=== PATIENT | male | born 1955 | race Caucasian/White ===

== ENCOUNTER 2020-12-08 11:19 | Emergency (ER) | payer BC, MEDICARE ==
--- NOTE | 2020-12-08 12:03 | EDM.PDOC ---
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 Patient states a baseball was thrown at him and went through a fence and struck him directly in the right tib-fib. Patient is a type II diabetic controlled with insulin for greater than 20 years. He is immunocompromised due to right kidney transplant for 8 years. He states he did develop a blood blister at the site of impact which he did not poke or drain. Subsequently the blister broke and now has become secondarily infected. He does not feel ill systemically with fever chills nausea vomiting. Throbbing pain right tibia. He states overall the pain is not too bad due to his peripheral neuropathy in both lower extremities. He can smell that the wound is infected. Onset: Sudden Onset Date: 11/16/20 Duration: Week(s):, Constant, Getting Worse Location: Reports: Lower Extremity, Right (Right anterior tibia.) Quality: Reports: Ache Severity: Moderate (Mild ache.) Improves with: Reports: None Worsens with: Reports: None Context: Reports: Trauma (Initial injury secondary to trauma when he was struck with a baseball or hard ball accidentally in the anterior aspect of his tibia.). Denies: Activity, Exercise, Lifting, Sick Contact Associated Symptoms: Reports: No Other Symptoms Treatments VACCINE MANAGER: Reports: Other (see below) (Only his usual medications.) - Related Data Allergies Allergy/AdvReac Type Severity Reaction Status Date / Time No Known Allergies Allergy Verified 08/01/13 00:22 SHIFT NURSE MANAGER Home Meds: Home Meds Fenofibrate [Fenoglide] 40 mg PO DAILY 08/01/13 [History] Simvastatin 10 mg PO BEDTIME 08/01/13 [History] Tacrolimus [Prograf] 0.5 mg PO DAILY 08/01/13 [History] amLODIPine Besylate [Amlodipine Besylate] 2.5 mg PO DAILY 08/01/13 [History] carvediloL [Carvedilol] 6.25 mg PO BID 08/01/13 [History] cloNIDine [Catapres] 0.3 mg PO DAILY 08/01/13 [History] predniSONE [Prednisone] 5 mg PO DAILY 08/01/13 [History] Aspirin [Aspirin EC] 81 mg PO DAILY 12/08/20 [History] Calcium Carbonate [Calcium] 600 mg PO DAILY 12/08/20 [History] Cholecalciferol (Vitamin D3) [Vitamin D3] 1,000 unit PO DAILY 12/08/20 [History] Cobestasol 1 tab PO ASDIRECTED 12/08/20 [History] Doxycycline [Vibra-Tabs] 100 mg PO Q12HR #42 tab 12/08/20 [Rx] Fenofibrate Nanocrystallized [Tricor] 145 mg PO DAILY 12/08/20 [History] Folic Acid 1 mg PO DAILY 12/08/20 [History] Folic Acid/Multivit-Min/Lutein [Centrum Silver Chewable Tablet] 1 tab PO DAILY 12/08/20 [History] Insulin Glargine,Hum.Rec.Anlog [Touchucko Solostar] 0 unit INJECT ASDIRECTED 12/08/20 [History] Iron Polysaccharides Complex [Ferrex 150] 150 mg PO DAILY 12/08/20 [History] Losartan [Cozaar] 50 mg PO DAILY 12/08/20 [History] Magnesium 500 mg PO DAILY 12/08/20 [History] Novalog 70/30 16 - 18 unit INJECT DAILY 12/08/20 [History] hydroCHLOROthiazide [Hydrochlorothiazide] 12.5 mg PO DAILY 12/08/20 [History] metFORMIN [Glucophage] 500 mg PO BID 12/08/20 [History] mycophenolate mofetiL [Cellcept] 1,000 mg PO DAILY 12/08/20 [History] Past Medical History Cardiovascular History: Reports: Hypertension Genitourinary History: Reports: Diabetic Nephropathy (Of original kidney.), Other (See Below) (Suffered renal failure and was a transient dialysis patient. He did receive a kidney transplant right lower quadrant of the abdomen 8 years ago. He is thus immunocompromise due to use of tacrolimus and CellCept.) Musculoskeletal History: Reports: Osteoarthritis (Knees hips lower back at times.) Neurological History: Reports: Neuropathy, Peripheral (Peripheral neuropathy both lower extremities.) Endocrine/Metabolic History: Reports: Diabetes, Type II (Type II diabetic for greater than 20 years. He has been on insulin most of that time.), Obesity/BMI 30+ Social & Family History - Living Situation & Occupation Living situation: Reports: Single Occupation: Employed ED ROS GENERAL - Review of Systems Review Of Systems: See Below Constitutional: Reports: Fatigue. Denies: Fever, Chills, Malaise, Weakness, Decreased Appetite, Weight Loss HEENT: Reports: No Symptoms, Glasses Respiratory: Reports: No Symptoms (Ice is only for reading.) Cardiovascular: Reports: Blood Pressure Problem, Dyspnea on Exertion, Edema (Chronic dependent edema.). Denies: Claudication, Lightheadedness, Orthopnea Endocrine: Reports: Fatigue (On occasion.) GI/Abdominal: Reports: Constipation (Rare problems with constipation) : Reports: Frequency, Other (Nocturia x2) Musculoskeletal: Reports: Neck Pain, Shoulder Pain, Back Pain, Joint Pain (Knees and hips at times.) Skin: Reports: Bruising (Bruises easily. Appreciates that wounds take a long time to heal) Neurological: Reports: Paresthesia (Peripheral neuropathy in both lower extremities both lower extremities), Other. Denies: Trouble Speaking, Difficulty Walking, Weakness, Change in Speech, Gait Disturbance Psychiatric: Reports: No Symptoms Hematologic/Lymphatic: Reports: No Symptoms Immunologic: Reports: No Symptoms ED EXAM, SKIN/RASH Exam: See Below Exam Limited By: No Limitations General Appearance: Alert, WD/WN, No Apparent Distress, Other (Temperature is 37.1 degrees. Heart rate 65 and sinus. Respiratory is 20 with O2 sats of 99% room air BP elevated at 191/78. Blood pressure did come down to 177/89. Of note he is on 4 different medications for blood pressure control.) Eye Exam: Bilateral Eye: Normal Inspection (No scleral icterus or blepharal pallor.) Throat/Mouth: Normal Inspection, Normal Lips, Normal Oropharynx Head: Atraumatic, Normocephalic Neck: Normal Inspection, Supple, Non-Tender, Full Range of Motion. No: Carotid Bruit, Lymphadenopathy (L), Lymphadenopathy (R) Respiratory/Chest: No Respiratory Distress, Lungs Clear, Normal Breath Sounds, No Accessory Muscle Use Cardiovascular: Normal Peripheral Pulses, Regular Rate, Rhythm, No Gallop, No Murmur, No Rub. No: No Edema Peripheral Pulses: 1+: Posterior Tibial (L), Posterior Tibial (R), Dorsalis Pedis (L), Dorsalis Pedis (R), 2+: Carotid (L), Carotid (R) GI/Abdominal: Normal Bowel Sounds, Soft, Non-Tender, No Organomegaly, No Mass, Pelvis Stable, Other (Surgical scar right lower quadrant where he has had his right kidney transplant performed.) Back Exam: Normal Inspection. No: CVA Tenderness (L), CVA Tenderness (R) Extremities: Pedal Edema (Patient has 2+ pitting edema both lower extremities up to mid tib-fib bilaterally.), Other (Examination of his right lower extremity shows a open wound approximately 5 to 6 cm in diameter with a dark purple crust in the middle indicating hematoma. The wound has surrounding erythema and increased warmth indicating cellulitis developing. The wound smells of infective process particular daniela) Neurological: Alert ( Perhaps slightly worse on the right as compared to the left.), Oriented, CN II-XII Intact, Normal Cognition, Normal Gait Psychiatric: Normal Affect, Normal Mood Skin: Warm, Dry, Other (Early cellulitis developing around a initial hematoma right anterior tibia that occurred after a baseball struck him creating a blood blister 3 weeks ago. The blister is subsequently ruptured and unfortunately the wound is become secondarily infected with developing cellulitis). No: Intact, Normal Color Course - Vital Signs Last Recorded V/S: Last Vital Signs Temp 37.1 C 12/08/20 11:50 Pulse 65 12/08/20 11:50 Resp 20 12/08/20 11:50 BP 191/78 H 12/08/20 11:50 Pulse Ox 99 12/08/20 11:50 - Orders/Labs/Meds Orders: Active Orders 24 hr Category Date Time Status Peripheral IV Care [RC] . DIRECTED Care 12/08/20 12:04 Active Consult to Physical Therapy [PT Evaluation and Cons 12/08/20 13:52 Active Treatment] [CONS] Routine CULTURE ANAEROBIC + SMEAR [RM] Stat Lab 12/08/20 13:20 Received Sodium Chloride 0.9% [Saline Flush] Med 12/08/20 12:04 Active 10 ml FLUSH ASDIRECTED PRN Peripheral IV Insertion Adult [OM.PC] Stat Oth 12/08/20 12:04 Ordered Medication Orders Sodium Chloride (Sodium Chloride 0.9% 10 Ml Syringe) 10 ml FLUSH ASDIRECTED PRN PRN Reason: Keep Vein Open Last Admin: 12/08/20 13:54 Dose: 10 ml Documented by: STANLEY Labs: Laboratory Tests 12/08/20 12/08/20 Range/Units 12:35 12:35 WBC 9.30 H (4.23-9.07) K/mm3 RBC 4.13 L (4.63-6.08) M/mm3 Hgb 11.9 L (13.7-17.5) gm/dl Hct 36.0 L (40.1-51.0) % MCV 87.2 (79.0-92.2) fl MCH 28.8 (25.7-32.2) pg MCHC 33.1 (32.2-35.5) g/dl RDW Std Deviation 41.1 (35.1-43.9) fL Plt Count 263 (163-337) K/mm3 MPV 9.2 L (9.4-12.3) fl Neut % (Auto) 82.1 H (34.0-67.9) % Lymph % (Auto) 8.5 L (21.8-53.1) % Phillips % (Auto) 8.0 (5.3-12.2) % Eos % (Auto) 1.0 (0.8-7.0) Baso % (Auto) 0.2 (0.1-1.2) % Neut # (Auto) 7.64 H (1.78-5.38) K/mm3 Lymph # (Auto) 0.79 L (1.32-3.57) K/mm3 Phillips # (Auto) 0.74 (0.30-0.82) K/mm3 Eos # (Auto) 0.09 (0.04-0.54) K/mm3 Baso # (Auto) 0.02 (0.01-0.08) K/mm3 Manual Slide Review Abnormal smear Sodium 140 (136-145) mEq/L Potassium 4.3 (3.5-5.1) mEq/L Chloride 103 (98-107) mEq/L Carbon Dioxide 25 (21-32) mEq/L Anion Gap 16.3 H (5-15) BUN 51 H (7-18) mg/dL Creatinine 2.5 H (0.7-1.3) mg/dL Est Cr Clr Drug Dosing 38.12 mL/min Estimated GFR (MDRD) 26 (>60) mL/min BUN/Creatinine Ratio 20.4 H (14-18) Glucose 210 H (70-99) mg/dL Calcium 8.9 (8.5-10.1) mg/dL Total Bilirubin 0.5 (0.2-1.0) mg/dL AST 11 L (15-37) U/L ALT 24 (16-63) U/L Alkaline Phosphatase 54 (46-116) U/L C-Reactive Protein 0.6 (<1.0) mg/dL Total Protein 7.1 (6.4-8.2) g/dl Albumin 3.5 (3.4-5.0) g/dl Globulin 3.6 gm/dL Albumin/Globulin Ratio 1.0 (1-2) Meds: Medications Generic Name Dose Route Start Last Admin Trade Name Freq PRN Reason Stop Dose Admin Sodium Chloride 10 ml 12/08/20 12:04 12/08/20 13:54 Sodium Chloride 0.9% 10 Ml Syringe FLUSH 10 ml ASDIRECTED PRN Administration Keep Vein Open Discontinued Medications Generic Name Dose Route Start Last Admin Trade Name Freq PRN Reason Stop Dose Admin Ceftriaxone Sodium 2 gm/ 100 mls @ 200 mls/hr 12/08/20 12:30 12/08/20 13:25 Sodium Chloride IV 12/08/20 12:59 200 mls/hr ONETIME ONE Administration - Radiology Interpretation Free Text/Narrative:: 65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 He was struck by a baseball that was thrown through the back stop and struck him in the right anterior tibia. Initial injury was a hematoma forming in this area or blood blister which she never did pop. Once the blister ruptured unfortunately the wound has become secondarily infected. It is going to require some debridement as there is a thick eschar of dried blood and hematoma overlying the wound. The wound edges themselves appear fairly clean. There is areas of erythema surrounding the entire wound with increased warmth and minimal tenderness but the patient has decreased sensation to his lower extremity from diabetic neuropathy. X-ray of the tib-fib will be obtained. Once I have obtained cultures he will be started on antibiotics with Rocephin 2 g IV. Routine labs to be obtained. - Re-Assessments/Exams Free Text/Narrative Re-Assessment/Exam: 12/08/20 13:14 White count is normal at 9.30. Differential shows 82.1% neutrophils. Hemoglobin is 11.9 with hematocrit of 36.0. Platelet count 263,000. Chemistry shows a sodium of 140 and a potassium of 4.3. Chloride 103 with a bicarb of 25. Anion gap is minimally elevated at 16.3. BUN is elevated at 51 with a creatinine of 2.5. GFR is 26 a stage IV renal insufficiency. Glucose 210. Calcium 8.9 with a normal liver function. C-reactive protein 0.6. Total protein 7.1 with an albumin fraction of 3.5. X-ray of the right tib-fib does not reveal any bony involvement. You can see the defect in the skin over the lower mid tib-fib. 12/08/20 14:19 0 therapist felt that the wound was best treated with nonadhesive dressing with a 4 x 4 and Kerlix to keep it in place. Dressing should be changed every 2nd-3rd day. I am going to place him on doxycycline 100 mg twice daily being aware that he does have an elevated BUN but it seems to be higher than normal as he is not been eating or drinking well. He has completed 2 g of Rocephin intravenously at this time. Departure - Departure Time of Disposition: 14:20 Disposition: Home, Self-Care 01 Condition: Fair Clinical Impression: Immunocompromised state due to drug therapy Type 2 diabetes mellitus Qualifiers: Diabetes mellitus bed bug exterminator insulin use: with skilled nursing use Diabetes mellitus complication status: with kidney complications Diabetes mellitus complication detail: with nephropathy Qualified Code(s): E11.21 - Type 2 diabetes mellitus with diabetic nephropathy - Discharge Information *PRESCRIPTION DRUG MONITORING PROGRAM REVIEWED*: Not Applicable *COPY OF PRESCRIPTION DRUG MONITORING REPORT IN PATIENT ELVIRA: Not Applicable Prescriptions: Doxycycline [Vibra-Tabs] 100 mg PO Q12HR #42 tab Instructions: Diabetes Mellitus and Skin Care Referrals: PCP,Not In Area [Primary Care Provider] - Forms: ED Department Discharge Additional Instructions: Evaluation in the emergency room today in regards to initial contusion from blunt trauma to the right anterior tibia on November 16 from a hard ball that struck you. Resultant hematoma formation with blister with resultant blister rupture. On today's examination there is increased warmth and redness around the initial wound which measures 4.5 cm in diameter. It has developed full-thickness skin loss with some of the fat tissue underneath infected. There is evidence of soft tissue infection which we call cellulitis. Lab work did not show any signs of systemic infection which means it is not involved your bloodstream. X-ray of the bone revealed no bony abnormalities. I debrided the wound and cleaned up the edges. This lesion is going to need to be take very good care of with daily cleansing and dry dressings until healed. I would suggest planning on following up with your primary care provider on a weekly basis for the next 3 to 4 weeks until we see that there is significant improvement in healing. You were given Rocephin 2 g intravenously today which will start working a couple of hours to try and bring this infection under control. You will need to take doxycycline 100 mg twice daily for the next 3 weeks with the first tablet to be taken tonight after supper. Of note the doxycycline cannot be taken with milk products due to calcium binding to the medicine as well as your magnesium supplement. It should be at least 3 hours in between taking a antibiotic tablet and your magnesium supplementation. Follow-up with personal care physician next week for wound assessment right leg. Continue all other medications as before Sepsis Event Note (ED) - Evaluation Sepsis Screening Result: No Definite Risk - Focused Exam Vital Signs: Vital Signs Temp Pulse Resp BP Pulse Ox 12/08/20 11:50 37.1 C 65 20 191/78 H 99 - My Orders Last 24 Hours: My Active Orders 12/08/20 12:04 Peripheral IV Care [RC] . DIRECTED Sodium Chloride 0.9% [Saline Flush] 10 ml FLUSH ASDIRECTED PRN Peripheral IV Insertion Adult [OM.PC] Stat 12/08/20 13:20 CULTURE ANAEROBIC + SMEAR [RM] Stat 12/08/20 13:52 Consult to Physical Therapy [PT Evaluation and Treatment] [CONS] Routine - Assessment/Plan Last 24 Hours: My Active Orders 12/08/20 12:04 Peripheral IV Care [RC] . DIRECTED Sodium Chloride 0.9% [Saline Flush] 10 ml FLUSH ASDIRECTED PRN Peripheral IV Insertion Adult [OM.PC] Stat 12/08/20 13:20 CULTURE ANAEROBIC + SMEAR [RM] Stat 12/08/20 13:52 Consult to Physical Therapy [PT Evaluation and Treatment] [CONS] Routine
[2020-12-08] MEDS ORDERED: Sodium Chloride 0.9% 10 ML Syringe FLUSH PRN (12:04)
[2020-12-08] MEDS ORDERED: cefTRIAXone 2 GM in Sodium Chloride 0.9% 100 ML IV ONE (12:30)
--- NOTE | 2020-12-08 13:54 | CR ---
Right tibia and fibula: AP and lateral views of the right tibia and fibula were obtained. Comparison: No prior study of the right tibia or fibula is available. Soft tissue swelling is noted anteriorly. Diffuse vascular calcification is noted. Spur is noted at the attachment of the Achilles tendon to the calcaneus. Medial joint space narrowing is seen within the knee. No acute fracture or other acute osseous abnormality is seen. Impression: 1. Soft tissue swelling. 2. Vascular calcification, calcaneal spurs and degenerative change as noted above. Diagnostic code #2
== END 2020-12-08 14:41 | disposition home or self-care (01) ==
LOC: JD.ED 11:19
DX: E11.21 Type 2 diabetes mellitus with diabetic nephropathy (principal); D84.821 Immunodeficiency due to drugs; M19.90 Unspecified osteoarthritis, unspecified site; E66.9 Obesity, unspecified; Z68.34 Body mass index [BMI] 34.0-34.9, adult; Z79.899 Other long term (current) drug therapy; Z79.82 Long term (current) use of aspirin; Z79.4 Long term (current) use of insulin
CPT/HCPCS: 36415; 73590; 80053; 85025; 86140; 87075; 87076; 87077; 87181; 87186; 87205; 96365; 99285; J0696; 99283